=== PATIENT | female | born 1990 | race Caucasian/White ===

== ENCOUNTER → 2021-12-07 09:45 | Outpatient (REF) | payer OTHER, SELFPAY ==
--- NOTE | 2021-12-07 10:13 | ECG_ITS ---
Test Reason : preop Blood Pressure : / mmHG Vent. Rate : 089 BPM Atrial Rate : 089 BPM P-R Int : 138 ms QRS Dur : 082 ms QT Int : 348 ms P-R-T Axes : 079 072 000 degrees QTc Int : 423 ms Normal sinus rhythm with sinus arrhythmia Nonspecific T wave abnormality Abnormal ECG No previous ECGs available Referred By: Lalito Gurrola Electronically Signed By:Hieu Rubin
== END ==
LOC: HO.CARD 09:45
PROVIDERS: Visit Provider Plastic Surgery
DX: Z01.818 Encounter for other preprocedural examination (principal)
CPT/HCPCS: 93005

== ENCOUNTER → 2022-05-25 08:36 | Outpatient (BNVA) | payer SELFPAY | PROVIDERS: Visit Provider Internal Medicine | DX: Z02.79 Encounter for issue of other medical certificate (principal) ==